=== PATIENT | male | born 1950 | race African-American/Black ===

== ENCOUNTER 2023-07-23 16:57 | Emergency (ER) | payer MEDICARE, MEDICAID ==
[~2023-07-23] VITALS: Ht 165.1 cm; Wt 59.0 kg
[2023-07-23 16:59] VITALS: BP 188/90; PULSE 88; RESP 16; TEMP 98.8; O2SAT 94
[2023-07-23 19:56] LABS: BASOPHILS % 0.9 % (0.0-2.0); EOSINOPHILS % 0.6 % (0.0-5.0); HEMATOCRIT. 27.2 % (42.0-52.0); HEMOGLOBIN. 8.5 g/dL (14.0-18.0); MEAN CORPUSCULAR HEMOGLOBIN 26.4 pg (28.0-32.0); MEAN CORPUSCULAR HGB CONC 31.3 g/dL (31.0-37.0); MEAN CORPUSCULAR VOLUME 84.2 fL (80.0-94.0); MEAN PLATELET VOLUME 7.7 fl (7.4-10.4); MONOCYTES % 12.2 % (2.0-8.0); NEUTROPHILS % 78.3 % (40.0-76.0); PLATELET 286 x1000/uL (130-400); RED BLOOD CELL COUNT 3.23 mill/uL (4.7-6.1); RED CELL DISTRIBUTION WIDTH 21.7 % (11.6-14.6); WHITE BLOOD COUNT 7.7 x1000/uL (4.5-11.0)
[2023-07-23 20:12] LABS: ALANINE AMINOTRANSFERASE 8 IU/L (10-49); ALBUMIN 4.4 g/dL (3.2-4.8); ASPARTATE AMINOTRANSFERASE 15 IU/L (<34); BILIRUBIN TOTAL 0.5 mg/dL (0.1-1.0); CALCIUM 9.6 mg/dL (8.7-10.4); CARBON DIOXIDE 24 mEq/L (21-32); CHLORIDE 105 mEq/L (98-107); CREATININE 1.3 mg/dL (0.6-1.3); GLUCOSE 108 mg/dL (70-105); POTASSIUM 4.7 mEq/L (3.5-5.1); PROTEIN TOTAL 7.5 g/dL (6.0-8.3); SODIUM 135 mEq/L (136-145); UREA NITROGEN BLOOD 40 mg/dL (9-23)
[2023-07-23 20:14] LABS: ETHANOL BLOOD < 10 mg/dL (<10)
[2023-07-23] MEDS ORDERED: LOPE2CAP MT (20:19)
[2023-07-23] MEDS ORDERED: SODIUM CHLORIDE 0.9% 1,000 ML IV ONE (20:30)
== END 2023-07-23 21:40 | disposition home or self-care (01) ==
LOC: ER 16:57
DX: G89.29 Other chronic pain (principal); R19.7 Diarrhea, unspecified
CPT/HCPCS: 80053; 80320; 83690; 85025; 36415; 99283; J7030; G0480

== ENCOUNTER 2023-07-24 16:06 | Emergency (ER) | payer MEDICARE, MEDICAID ==
[~2023-07-24] VITALS: Ht 167.6 cm; Wt 61.0 kg
[~2023-07-24 16:06] MED LIST: LOPE2CAP MT
[2023-07-24 16:13] VITALS: TEMP 97.9; O2SAT 95
[2023-07-24 20:00] VITALS: BP 100/62; PULSE 74; RESP 14
== END 2023-07-24 23:01 | disposition home or self-care (01) ==
LOC: ER 16:06
DX: R19.7 Diarrhea, unspecified (principal); Z59.00 Homelessness unspecified
CPT/HCPCS: 99283